=== PATIENT | female | born 1965 | race African-American/Black ===

== ENCOUNTER 2017-06-04 09:06 | Inpatient (IN) | payer OTHER ==
[2017-06-04 11:08] VITALS: BMI 31.9
--- NOTE | 2017-06-04 15:14 | HP ---
CIWA Score - CIWA Score Nausea/Vomitin-Int. Nausea w/Dry Heave Muscle Tremors: 4-Moderate,w/Arms Extend Anxiety: 4-Mod. Anxious/Guarded Agitation: 3 Paroxysmal Sweats: 1-Minimal Palms Moist Orientation: 0-Oriented Tacttile Disturbances: 3-Moderate Itch/Numb/Burn Auditory Disturbances: 0-None Visual Disturbances: 0-None Headache: 2-Mild CIWA-Ar Total Score: 21 Admission ROS BHS - HPI Chief Complaint: WITHDRAWAL SX FROM ALCOHOL Allergies/Adverse Reactions: Allergies Allergy/AdvReac Type Severity Reaction Status Date / Time blueberry Allergy Severe Hives Verified 07/06/15 13:36 No Known Drug Allergies Allergy Severe Hives Verified 08/25/15 12:10 History of Present Illness: 51 Y/O AA/FEMALE WITH A HX OF ALCOHOL AND COCAINE DEPENDENCE SEEKING DETOX [place]. Exam Limitations: No Limitations - Ebola screening Have you traveled outside of the country in the last 21 days: No Have you had contact with anyone from an Ebola affected area: No Have you been sick,other than usual withdrawal symptoms: No - Review of Systems Constitutional: Chills, Loss of Appetite, Night Sweats, Changes in sleep, Unintentional Wgt. Loss EENT: reports: Blurred Vision (WEARS GLASSES), Tearing, Nose Congestion, Dental Problems (FULL UPPER DENTURES AND PARTIAL LOWER DENTURES) Respiratory: reports: Shortness of Breath (HX ASTHMA), Wheezing Cardiac: reports: Lightheadedness GI: reports: Constipated, Diarrhea, Nausea, Poor Appetite, Poor Fluid Intake : reports: Frequency Musculoskeletal: reports: Back Pain, Joint Pain, Muscle Pain, Other (HX PERIPHERAL NEUROPTHY) Integumentary: reports: Dryness (FEET) Neuro: reports: Headache, Numbness, Tingling, Tremors, Unsteady Gait, Dizziness Endocrine: reports: No Symptoms Reported Hematology: reports: Anemia Psychiatric: reports: Orientated x3, Anxious, Depressed Other Systems: Reviewed and Negative Patient History - Patient Medical History Hx Anemia: Yes (NO CURRENT MED) Hx Asthma: Yes (MDI) Hx Chronic Obstructive Pulmonary Disease (COPD): No Hx Cancer: No Hx Cardiac Disorders: No Hx Congestive Heart Failure: No Hx Hypertension: Yes (ON MED) Hx Hypercholesterolemia: Yes (ON MED) Hx Pacemaker: No HX Cerebrovascular Accident: No Hx Seizures: No Hx Dementia: No Hx Diabetes: Yes (ON METFORMIN) Hx Gastrointestinal Disorders: No Hx Liver Disease: No Hx Genitourinary Disorders: No Hx Sexually Transmitted Disorders: Yes ([place]ph[place] 1:2) Hx Renal Disease (ESRD): No Hx Thyroid Disease: No Hx Human Immunodeficiency Virus (HIV): No (NEGATIVE HX) Hx Hepatitis C: No Hx Depression: Yes (ON MED) Hx Suicide Attempt: No (DENIES) Hx Bipolar Disorder: No Hx Schizophrenia: No - Patient Surgical History Past Surgical History: Yes Hx Neurologic Surgery: No Hx Cataract Extraction: No Hx Cardiac Surgery: No Hx Lung Surgery: No Hx Breast Surgery: No Hx Breast Biopsy: No Hx Abdominal Surgery: Yes (abdominal hernia 1982) Hx Appendectomy: No Hx Cholecystectomy: No Hx Genitourinary Surgery: No Hx Section: Yes (two last 21 years ago) Hx Orthopedic Surgery: No Other Surgical History: hemorroiectomy 1982 Anesthesia Reaction: No - PPD History Previous Implant?: Yes Documented Results: Negative w/o proof Implanted On Prior [facility] Admission?: Yes Date: 03/03/16 Results: 0mm PPD to be Administered?: Yes - Reproductive History Patient is a Female of Child Bearing Age (11 -55 yrs old): Yes Last Menstrual Period: 10/08/13 Patient : No - Smoking Cessation Smoking history: Current every day smoker Have you smoked in the past 12 months: Yes Aproximately how many cigarettes per day: 2 Cigars Per Day: 0 Hx Chewing Tobacco Use: No Initiated information on smoking cessation: Yes 'Breaking Loose' booklet given: 06/04/17 - Substance & Tx. History Hx Alcohol Use: Yes (VODKA/BEER) Hx Substance Use: Yes (CRACK/COCAINE) Substance Use Type: Alcohol, Cocaine Hx Substance Use Treatment: Yes (LAST TX AT [facility]) - Substances Abused Alcohol Route: Oral Frequency: Daily Amount used: 2-3 pints of Vodka and two 6 packs of beer Age of first use: 8 Date of Last Use: 06/03/17 Cocaine Route: Smoking Frequency: 1-2 times per week Amount used: $ 200 Age of first use: 17 Date of Last Use: 06/02/17 Family Disease History - Family Disease History Family Disease History: Diabetes: Grandparent (breast CA,diabetes mellitus), Mother, CA: Grandparent, Mother, Other: Father (alcohol,) Admission Physical Exam BHS - Vital Signs Vital Signs: Vital Signs - 24 hr 06/04/17 11:05 Temperature 96.4 F L Pulse Rate 72 Respiratory 20 Rate Blood Pressure 162/103 - Physical General Appearance: Yes: Moderate Distress, Irritable, Anxious HEENTM: Yes: EOMI, Normocephalic, SAM, Pharynx Normal Respiratory: Yes: Chest Non-Tender, Lungs Clear, Normal Breath Sounds, No Respiratory Distress Neck: Yes: No masses,lesions,Nodules, Supple, Trachea in good position Breast: Yes: Breast Exam Deferred Cardiology: Yes: Regular Rhythm, Regular Rate, S1, S2 Abdominal: Yes: Normal Bowel Sounds, Non Tender, Flat Genitourinary: Yes: Other Back: Yes: Within Normal Limits Musculoskeletal: Yes: full range of Motion, Gait Steady Extremities: Yes: Normal Capillary Refill, Normal Range of Motion, Non-Tender Neurological: Yes: investment banking manager II-XII NML intact, Fully Oriented, Alert, Motor Strength 5/5 Integumentary: Yes: Dry, Warm Lymphatic: Yes: Within Normal Limits - Diagnostic (1) Alcohol dependence with uncomplicated withdrawal Current Visit: Yes Status: Acute (2) Asthma Current Visit: Yes Status: Chronic Qualifiers: Asthma severity: mild Asthma persistence: unspecified Asthma complication type: uncomplicated Qualified Code(s): J45.909 - Unspecified asthma, uncomplicated (3) Cocaine dependence Current Visit: Yes Status: Acute Qualifiers: Substance use status: uncomplicated Qualified Code(s): F14.20 - Cocaine dependence, uncomplicated (4) GERD (gastroesophageal reflux disease) Current Visit: Yes Status: Chronic Qualifiers: Esophagitis presence: esophagitis presence not specified Qualified Code(s) : K21.9 - Gastro-esophageal reflux disease without esophagitis (5) H/O cardiac murmur Current Visit: Yes Status: Suspected Comment: NO MURMUR ON AUSCULTATION (6) Hypercholesteremia Current Visit: Yes Status: Chronic (7) Hypertension Current Visit: Yes Status: Chronic Qualifiers: Hypertension type: essential hypertension Qualified Code(s): I10 - Essential (primary) hypertension (8) Morbid obesity Current Visit: Yes Status: Chronic (9) Nicotine dependence Current Visit: Yes Status: Acute Qualifiers: Nicotine product type: cigarettes Substance use status: in withdrawal Qualified Code(s): F17.213 - Nicotine dependence, cigarettes, with withdrawal (10) Non-insulin dependent type 2 diabetes mellitus Current Visit: Yes Status: Chronic Cleared for Admission [facility] - Detox or Rehab [facility] Level of Care: Medically Managed Detox Regimen/Protocol: Valium S Breath Alcohol Content Breath Alcohol Content: 0 Urine Pregancy Test - Result Urine Test Results: Negative- NO Line Present Urine Drug Screen - Results Drug Screen Negative: No Urine Drug Screen Results: SARAY-Cocaine
[2017-06-04] MEDS ORDERED: MAGNESIUM HYDROX 2400MG/30ML ORAL SUSPENSION 30 ML CUP PO PRN (15:21)
[2017-06-04] MEDS ORDERED: P-EPHED 60MG/TRIPROLIDI 2.5MG TABLET PO PRN (15:21)
[2017-06-04] MEDS ORDERED: ACETAMINOPHEN 325 MG TABLET (FP) PO PRN (15:21)
[2017-06-04] MEDS ORDERED: MAG HYDROX/AL HYDROX/SIMETH 30 ML UNIT-DOSE CUP PO PRN (15:21)
[2017-06-04] MEDS ORDERED: NICOTINE POLACRILEX 2 MG GUM BC PRN (15:21)
[2017-06-04] MEDS ORDERED: IBUPROFEN 400 MG TABLET (FP) PO PRN (15:21)
[2017-06-04] MEDS ORDERED: diazePAM 5 MG TABLET PO PRN (15:21)
[2017-06-04] MEDS ORDERED: LOPERAMIDE HCL 2 MG CAPSULE PO PRN (15:21)
[2017-06-04] MEDS ORDERED: MENTHOL/PHENOL 1 EACH UD MM PRN (15:21)
[2017-06-04] MEDS ORDERED: hydrOXYzine PAMOATE 50 MG CAPSULE (FP) PO PRN (15:21)
[2017-06-04] MEDS ORDERED: MAGNESIUM CITRATE 300 ML BOTTLE PO PRN (15:21)
[2017-06-04] MEDS ORDERED: ALBUTEROL SO4 18 GM HFA INHALER IH PRN (15:24)
[2017-06-04] MEDS ORDERED: diazePAM 5 MG TABLET PO ONE (15:47)
[2017-06-04] MEDS: ASPIRIN 81 MG CHEWABLE TABLETS PO SCH (16:59)
[2017-06-04] MEDS: LOSARTAN POTASSIUM 25 MG TABLET PO SCH (16:59)
[2017-06-04] MEDS: NICOTINE 14 MG/24 HOURS TOPICAL PATCH TD SCH (16:59)
[2017-06-04 17:19] LABS: HEMATOCRIT 39.5 % (32.4-45.2); MCH 29.2 pg (25.7-33.7); MCHC 32.9 g/dl (32.0-36.0); MEAN CELL VOLUME 88.7 fl (80-96); MEAN PLT VOLUME 8.5 fl (7.5-11.1); PLATELET COUNT 298 K/MM3 (134-434); RBC 4.45 M/mm3 (3.60-5.2); WHITE BLOOD COUNT 5.2 K/mm3 (4.0-10.0)
[2017-06-04 17:57] LABS: ALBUMIN 3.1 g/dl (3.4-5.0); ANION GAP 9 (8-16); BLOOD UREA NITROGEN 10 mg/dL (7-18); CALCIUM 9.1 mg/dL (8.5-10.1); CHLORIDE 106 mmol/L (98-107); CO2 28 mmol/L (21-32); GLUCOSE,RANDOM 68 mg/dL (74-106); POTASSIUM 4.3 mmol/L (3.5-5.1); SGPT/ALT 20 U/L (12-78); SODIUM 143 mmol/L (136-145)
[2017-06-04 18:00] LABS: ALK PHOS 102 U/L (45-117); BILIRUBIN,TOTAL 0.3 mg/dL (0.2-1.0); CREATININE 0.8 mg/dL (0.55-1.02); SGOT/AST 8 U/L (15-37)
[2017-06-04] MEDS: guaiFENesin/D-METHORPHAN HB 10 ML UNIT-DOSE CUPS PO PRN (18:45)
[2017-06-04 21:28] LABS: URINE APPEARANCE SLCLOUDY; URINE BILIRUBIN NEGATIVE (NEGATIVE); URINE BLOOD NEGATIVE (NEGATIVE); URINE COLOR LTYELLOW; URINE GLUCOSE (UA) NEGATIVE (NEGATIVE); URINE KETONE NEGATIVE (NEGATIVE); URINE LEUK ESTERASE NEGATIVE (NEGATIVE); URINE NITRITE NEGATIVE (NEGATIVE); URINE PROTEIN NEGATIVE (NEGATIVE); URINE UROBILINOGEN NEGATIVE mg/dL (0.2-1.0)
[2017-06-04] MEDS: BUDESONIDE/FORMETEROL FUMARATE 160/4.5 mcg INHALER IH SCH (22:36)
[2017-06-04] MEDS: ATORVASTATIN CA 10 MG TABLET (FP) PO SCH (22:37)
[2017-06-04] MEDS: diazePAM 5 MG TABLET PO SCH (22:37)
[2017-06-04] MEDS: GABAPENTIN 100 MG CAPSULE (FP) PO SCH (22:37)
[2017-06-04] MEDS: THIAMINE HCL 100 MG TABLET (FP) PO SCH (22:37)
[2017-06-04] MEDS: MONTELUKAST NA 10 MG TABLET PO SCH (22:37)
[2017-06-04] MEDS ORDERED: cloNIDine HCL 0.1 MG TABLET PO ONE (23:28)
[2017-06-05] MEDS: GABAPENTIN 100 MG CAPSULE (FP) PO SCH ×3 (06:01→22:37)
[2017-06-05] MEDS: diazePAM 5 MG TABLET PO SCH ×3 (06:02→22:38)
[2017-06-05] MEDS: metFORMIN HCL 500 MG TABLET (FP) PO SCH (06:08)
--- NOTE | 2017-06-05 09:05 | CONSULT ---
[facility] Psychiatric Consult - Data Date of interview: 06/05/17 Admission source: [facility] Identifying data: This is 51 years old obese female with no psychiatric hospitalization history, HISOTY OF ptsd, mdd, intoxicated with Opioids, PCP, Alcohol, Cocaine amd Nicotine Substance Abuse History: - Smoking Cessation. Smoking history: Current every day smoker. Have you smoked in the past 12 months: Yes. Aproximately how many cigarettes per day: 2. Cigars Per Day: 0. Hx Chewing Tobacco Use: No. Initiated information on smoking cessation: Yes. 'Breaking Loose' booklet given : 06/04/17. - Substance & Tx. History. Hx Alcohol Use: Yes (VODKA/BEER). Hx Substance Use: Yes (CRACK/COCAINE). Substance Use Type: Alcohol, Cocaine. Hx Substance Use Treatment: Yes (LAST TX AT [facility] - Substances Abused. Alcohol. Route: Oral. Frequency: Daily. Amount used: 2-3 pints of Vodka and two 6 packs of beer. Age of first use: 8. Date of Last Use: 06/03/17. Cocaine. Route: Smoking. Frequency: 1-2 times per week. Amount used: $ 200. Age of first use: 17. Date of Last Use: 06/02/17 Medical History: Asthma, PTSD, MDD,Hypersholesterolemia, Cardiac murmur history , HTN, DM-2, Psychiatric History: Patient reports anxiety and depression, PTSD, MDD, DENIES SUICIDAL HISTORY, reports taking prior to admission: Trazodone 150mg po qhs. Buspar 15mg po bid. Celexa 40mg poqd Physical/Sexual Abuse/Trauma History: Denies Additional Comment: Trazodone 150mg po qhs. Buspar 15mg po bid. Celexa 40mg poqd Mental Status Exam - Mental Status Exam Alert and Oriented to: Person Cognitive Function: Fair Patient Appearance: Unkempt Mood: Sad Affect: Flat Patient Behavior: Sedated Speech Pattern: Delayed Voice Loudness: Mildly Soft/Quiet Thought Process: Circumstantial Thought Disorder: Being Controlled Hallucinations: Denies Suicidal Ideation: Denies Homicidal Ideation: Denies Insight/Judgement: Fair Sleep: Difficulty falling asleep Appetite: Weight gain Muscle strength/Tone: Normal Gait/Station: Shuffling Additional Comments: Trazodone 150mg po qhs. Buspar 15mg po bid. Celexa 40mg poqd Psychiatric Findings - Problem List ([place] 1, 2,3) (1) Alcohol dependence with uncomplicated withdrawal Current Visit: Yes Status: Acute (2) Cocaine dependence Current Visit: Yes Status: Acute Qualifiers: Substance use status: uncomplicated Qualified Code(s): F14.20 - Cocaine dependence, uncomplicated (3) Nicotine dependence Current Visit: Yes Status: Acute Qualifiers: Nicotine product type: cigarettes Substance use status: in withdrawal Qualified Code(s): F17.213 - Nicotine dependence, cigarettes, with withdrawal (4) Morbid obesity Current Visit: Yes Status: Chronic - Initial Treatment Plan Initial Treatment Plan: Trazodone 150mg po qhs. Buspar 15mg po bid. Celexa 40mg poqd
--- NOTE | 2017-06-05 10:35 | EKG ---
Test Reason : Blood Pressure : / mmHG Vent. Rate : 070 BPM Atrial Rate : 070 BPM P-R Int : 176 ms QRS Dur : 096 ms QT Int : 390 ms P-R-T Axes : -13 033 004 degrees QTc Int : 421 ms NORMAL SINUS RHYTHM NORMAL ECG NO PREVIOUS ECGS AVAILABLE Confirmed by ADEEL CANALES MD ([id number]) on 06/05/2017 10:34:49 AM Referred By: Confirmed By:ADEEL CANALES MD
[2017-06-05] MEDS: CITALOPRAM HYDROBROMIDE 20 MG TABLET (FP) PO SCH (11:09)
[2017-06-05] MEDS: ASPIRIN 81 MG CHEWABLE TABLETS PO SCH (11:09)
[2017-06-05] MEDS: PRENATAL VITAMINS W/ FOLIC ACID TABLET (FP) PO SCH (11:10)
[2017-06-05] MEDS: LOSARTAN POTASSIUM 25 MG TABLET PO SCH (11:10)
[2017-06-05] MEDS: BUDESONIDE/FORMETEROL FUMARATE 160/4.5 mcg INHALER IH SCH ×2 (11:10→22:38)
[2017-06-05] MEDS: NICOTINE 14 MG/24 HOURS TOPICAL PATCH TD SCH (11:14)
--- NOTE | 2017-06-05 11:59 | PN ---
S CIWA - CIWA Score Nausea/Vomitin-No Nausea/No Vomiting Muscle Tremors: 4-Moderate,w/Arms Extend Anxiety: 3 Agitation: 3 Paroxysmal Sweats: 4-Forehead w/Sweat Beads Orientation: 0-Oriented Tacttile Disturbances: 1-Very Mild Itch/Numbness Auditory Disturbances: 0-None Visual Disturbances: 0-None Headache: 1-Very Mild CIWA-Ar Total Score: 16 BHS Progress Note (SOAP) Subjective: tremor sweat anxiety Objective: 06/05/17 11:59 Vital Signs Temperature 96.8 F L 06/05/17 09:52 Pulse Rate 63 06/05/17 09:52 Respiratory Rate 18 06/05/17 09:52 Blood Pressure 152/92 06/05/17 09:52 O2 Sat by Pulse Oximetry (%) Laboratory Last Values WBC 5.2 K/mm3 (4.0-10.0) D 06/04/17 15:00 RBC 4.45 M/mm3 (3.60-5.2) 06/04/17 15:00 Hgb 13.0 GM/dL (10.7-15.3) 06/04/17 15:00 Hct 39.5 % (32.4-45.2) 06/04/17 15:00 MCV 88.7 fl (80-96) 06/04/17 15:00 MCH 29.2 pg (25.7-33.7) 06/04/17 15:00 MCHC 32.9 g/dl (32.0-36.0) 06/04/17 15:00 RDW 14.0 % (11.6-15.6) 06/04/17 15:00 Plt Count 298 K/MM3 (134-434) 06/04/17 15:00 MPV 8.5 fl (7.5-11.1) 06/04/17 15:00 Sodium 143 mmol/L (136-145) 06/04/17 15:00 Potassium 4.3 mmol/L (3.5-5.1) 06/04/17 15:00 Chloride 106 mmol/L (98-107) 06/04/17 15:00 Carbon Dioxide 28 mmol/L (21-32) 06/04/17 15:00 Anion Gap 9 (8-16) 06/04/17 15:00 BUN 10 mg/dL (7-18) 06/04/17 15:00 Creatinine 0.8 mg/dL (0.55-1.02) 06/04/17 15:00 Creat Clearance w eGFR > 60 (>60) 06/04/17 15:00 POC Glucometer 96 UNITS (80-120) 06/05/17 06:07 Random Glucose 68 mg/dL (74-106) L 06/04/17 15:00 Calcium 9.1 mg/dL (8.5-10.1) 06/04/17 15:00 Total Bilirubin 0.3 mg/dL (0.2-1.0) 06/04/17 15:00 AST 8 U/L (15-37) L 06/04/17 15:00 ALT 20 U/L (12-78) 06/04/17 15:00 Alkaline Phosphatase 102 U/L (45-117) 06/04/17 15:00 Total Protein 7.0 g/dl (6.4-8.2) 06/04/17 15:00 Albumin 3.1 g/dl (3.4-5.0) L 06/04/17 15:00 Urine Color Ltyellow 06/04/17 20:00 Urine Appearance Slcloudy 06/04/17 20:00 Urine pH 5.0 (5.0-8.0) 06/04/17 20:00 Ur Specific [place] 1.017 (1.001-1.035) 06/04/17 20:00 Urine Protein Negative (NEGATIVE) 06/04/17 20:00 Urine Glucose (UA) Negative (NEGATIVE) 06/04/17 20:00 Urine Ketones Negative (NEGATIVE) 06/04/17 20:00 Urine Blood Negative (NEGATIVE) 06/04/17 20:00 Urine Nitrite Negative (NEGATIVE) 06/04/17 20:00 Urine Bilirubin Negative (NEGATIVE) 06/04/17 20:00 Urine Urobilinogen Negative mg/dL (0.2-1.0) 06/04/17 20:00 Ur Leukocyte Esterase Negative (NEGATIVE) 06/04/17 20:00 RPR Titer Nonreactive (NONREACTIVE) 06/04/17 15:00 HIV 1&2 Antibody Screen Negative 06/05/17 06:00 HIV P24 Antigen Negative 06/05/17 06:00 lab noted Assessment: 06/05/17 12:00 withdrawal sx Plan: continue detox
[2017-06-05] MEDS: ATORVASTATIN CA 10 MG TABLET (FP) PO SCH (22:37)
[2017-06-05] MEDS: THIAMINE HCL 100 MG TABLET (FP) PO SCH (22:37)
[2017-06-05] MEDS: traZODone HCL 50 MG TABLET (FP) PO SCH (22:37)
[2017-06-05] MEDS: MONTELUKAST NA 10 MG TABLET PO SCH (22:37)
[2017-06-06] MEDS: GABAPENTIN 100 MG CAPSULE (FP) PO SCH ×3 (05:31→22:45)
[2017-06-06] MEDS: metFORMIN HCL 500 MG TABLET (FP) PO SCH (06:50)
--- NOTE | 2017-06-06 10:19 | PN ---
[facility] CIWA - CIWA Score Nausea/Vomitin-No Nausea/No Vomiting Muscle Tremors: 3 Anxiety: 4-Mod. Anxious/Guarded Agitation: 3 Paroxysmal Sweats: 3 Orientation: 0-Oriented Tacttile Disturbances: 0-None Auditory Disturbances: 0-None Visual Disturbances: 0-None Headache: 0-None Present CIWA-Ar Total Score: 13 S Progress Note (SOAP) Subjective: Sweating,tremors,interrupted sleep,restless Objective: 06/06/17 10:19 Vital Signs - 8 hr 06/06/17 06/06/17 06/06/17 03:30 07:43 09:46 Temperature 98 F 97.7 F Pulse Rate 55 L 81 Respiratory 18 16 20 Rate Blood Pressure 130/72 142/80 Laboratory Last Values WBC 5.2 K/mm3 (4.0-10.0) D 06/04/17 15:00 RBC 4.45 M/mm3 (3.60-5.2) 06/04/17 15:00 Hgb 13.0 GM/dL (10.7-15.3) 06/04/17 15:00 Hct 39.5 % (32.4-45.2) 06/04/17 15:00 MCV 88.7 fl (80-96) 06/04/17 15:00 MCH 29.2 pg (25.7-33.7) 06/04/17 15:00 MCHC 32.9 g/dl (32.0-36.0) 06/04/17 15:00 RDW 14.0 % (11.6-15.6) 06/04/17 15:00 Plt Count 298 K/MM3 (134-434) 06/04/17 15:00 MPV 8.5 fl (7.5-11.1) 06/04/17 15:00 Sodium 143 mmol/L (136-145) 06/04/17 15:00 Potassium 4.3 mmol/L (3.5-5.1) 06/04/17 15:00 Chloride 106 mmol/L (98-107) 06/04/17 15:00 Carbon Dioxide 28 mmol/L (21-32) 06/04/17 15:00 Anion Gap 9 (8-16) 06/04/17 15:00 BUN 10 mg/dL (7-18) 06/04/17 15:00 Creatinine 0.8 mg/dL (0.55-1.02) 06/04/17 15:00 Creat Clearance w eGFR > 60 (>60) 06/04/17 15:00 POC Glucometer 101 UNITS (80-120) 06/06/17 05:33 Random Glucose 68 mg/dL (74-106) L 06/04/17 15:00 Calcium 9.1 mg/dL (8.5-10.1) 06/04/17 15:00 Total Bilirubin 0.3 mg/dL (0.2-1.0) 06/04/17 15:00 AST 8 U/L (15-37) L 06/04/17 15:00 ALT 20 U/L (12-78) 06/04/17 15:00 Alkaline Phosphatase 102 U/L (45-117) 06/04/17 15:00 Total Protein 7.0 g/dl (6.4-8.2) 06/04/17 15:00 Albumin 3.1 g/dl (3.4-5.0) L 06/04/17 15:00 Urine Color Ltyellow 06/04/17 20:00 Urine Appearance Slcloudy 06/04/17 20:00 Urine pH 5.0 (5.0-8.0) 06/04/17 20:00 Ur Specific [place] 1.017 (1.001-1.035) 06/04/17 20:00 Urine Protein Negative (NEGATIVE) 06/04/17 20:00 Urine Glucose (UA) Negative (NEGATIVE) 06/04/17 20:00 Urine Ketones Negative (NEGATIVE) 06/04/17 20:00 Urine Blood Negative (NEGATIVE) 06/04/17 20:00 Urine Nitrite Negative (NEGATIVE) 06/04/17 20:00 Urine Bilirubin Negative (NEGATIVE) 06/04/17 20:00 Urine Urobilinogen Negative mg/dL (0.2-1.0) 06/04/17 20:00 Ur Leukocyte Esterase Negative (NEGATIVE) 06/04/17 20:00 RPR Titer Nonreactive (NONREACTIVE) 06/04/17 15:00 Hepatitis C Antibody 0.1 s/co ratio (0.0-0.9) 06/04/17 15:00 HIV 1&2 Antibody Screen Negative 06/05/17 06:00 HIV P24 Antigen Negative 06/05/17 06:00 labs noted Assessment: 06/06/17 10:20 Withdrawal sx. Plan: Continue Detox
[2017-06-06] MEDS: CITALOPRAM HYDROBROMIDE 20 MG TABLET (FP) PO SCH (10:58)
[2017-06-06] MEDS: ASPIRIN 81 MG CHEWABLE TABLETS PO SCH (10:58)
[2017-06-06] MEDS: LOSARTAN POTASSIUM 25 MG TABLET PO SCH (10:58)
[2017-06-06] MEDS: diazePAM 5 MG TABLET PO SCH ×2 (10:58→22:46)
[2017-06-06] MEDS: NICOTINE 14 MG/24 HOURS TOPICAL PATCH TD SCH (10:59)
[2017-06-06] MEDS: BUDESONIDE/FORMETEROL FUMARATE 160/4.5 mcg INHALER IH SCH ×2 (10:59→22:46)
[2017-06-06] MEDS: PRENATAL VITAMINS W/ FOLIC ACID TABLET (FP) PO SCH (10:59)
[2017-06-06] MEDS: THIAMINE HCL 100 MG TABLET (FP) PO SCH (22:45)
[2017-06-06] MEDS: MONTELUKAST NA 10 MG TABLET PO SCH (22:46)
[2017-06-06] MEDS: ATORVASTATIN CA 10 MG TABLET (FP) PO SCH (22:46)
[2017-06-06] MEDS: traZODone HCL 50 MG TABLET (FP) PO SCH (22:46)
[2017-06-07] MEDS: GABAPENTIN 100 MG CAPSULE (FP) PO SCH ×3 (06:11→22:22)
[2017-06-07] MEDS: metFORMIN HCL 500 MG TABLET (FP) PO SCH (06:11)
[2017-06-07] MEDS: guaiFENesin/D-METHORPHAN HB 10 ML UNIT-DOSE CUPS PO PRN (07:58)
--- NOTE | 2017-06-07 09:29 | PN ---
BHS Progress Note (SOAP) Subjective: Sweating,interrupted sleep,restless Objective: 06/07/17 09:28 Vital Signs - 8 hr 06/07/17 06/07/17 03:30 06:00 Temperature 97.7 F Pulse Rate 65 Respiratory 18 18 Rate Blood Pressure 122/85 Laboratory Tests 06/04/17 06/04/17 06/04/17 12:07 15:00 15:00 WBC 5.2 D RBC 4.45 Hgb 13.0 Hct 39.5 MCV 88.7 MCH 29.2 MCHC 32.9 RDW 14.0 Plt Count 298 MPV 8.5 Sodium Potassium Chloride Carbon Dioxide Anion Gap BUN Creatinine Creat Clearance w eGFR POC Glucometer 113 Random Glucose Calcium Total Bilirubin AST ALT Alkaline Phosphatase Total Protein Albumin Urine Color Urine Appearance Urine pH Ur Specific [place] Urine Protein Urine Glucose (UA) Urine Ketones Urine Blood Urine Nitrite Urine Bilirubin Urine Urobilinogen Ur Leukocyte Esterase RPR Titer Hepatitis C Antibody 0.1 HIV 1&2 Antibody Screen HIV P24 Antigen 06/04/17 06/04/17 06/04/17 15:00 15:00 20:00 WBC RBC Hgb Hct MCV MCH MCHC RDW Plt Count MPV Sodium 143 Potassium 4.3 Chloride 106 Carbon Dioxide 28 Anion Gap 9 BUN 10 Creatinine 0.8 Creat Clearance w eGFR > 60 POC Glucometer Random Glucose 68 L Calcium 9.1 Total Bilirubin 0.3 AST 8 L ALT 20 Alkaline Phosphatase 102 Total Protein 7.0 Albumin 3.1 L Urine Color Ltyellow Urine Appearance Slcloudy Urine pH 5.0 Ur Specific [place] 1.017 Urine Protein Negative Urine Glucose (UA) Negative Urine Ketones Negative Urine Blood Negative Urine Nitrite Negative Urine Bilirubin Negative Urine Urobilinogen Negative Ur Leukocyte Esterase Negative RPR Titer Nonreactive Hepatitis C Antibody HIV 1&2 Antibody Screen HIV P24 Antigen 06/05/17 06/05/17 06/05/17 06:00 06:07 16:48 WBC RBC Hgb Hct MCV MCH MCHC RDW Plt Count MPV Sodium Potassium Chloride Carbon Dioxide Anion Gap BUN Creatinine Creat Clearance w eGFR POC Glucometer 96 104 Random Glucose Calcium Total Bilirubin AST ALT Alkaline Phosphatase Total Protein Albumin Urine Color Urine Appearance Urine pH Ur Specific [place] Urine Protein Urine Glucose (UA) Urine Ketones Urine Blood Urine Nitrite Urine Bilirubin Urine Urobilinogen Ur Leukocyte Esterase RPR Titer Hepatitis C Antibody HIV 1&2 Antibody Screen Negative HIV P24 Antigen Negative 06/06/17 06/06/17 06/07/17 05:33 17:00 06:10 WBC RBC Hgb Hct MCV MCH MCHC RDW Plt Count MPV Sodium Potassium Chloride Carbon Dioxide Anion Gap BUN Creatinine Creat Clearance w eGFR POC Glucometer 101 95 101 Random Glucose Calcium Total Bilirubin AST ALT Alkaline Phosphatase Total Protein Albumin Urine Color Urine Appearance Urine pH Ur Specific [place] Urine Protein Urine Glucose (UA) Urine Ketones Urine Blood Urine Nitrite Urine Bilirubin Urine Urobilinogen Ur Leukocyte Esterase RPR Titer Hepatitis C Antibody HIV 1&2 Antibody Screen HIV P24 Antigen labs noted Assessment: 06/07/17 09:29 Withdrawal sx. Plan: Continue detox
[2017-06-07] MEDS: CITALOPRAM HYDROBROMIDE 20 MG TABLET (FP) PO SCH (10:43)
[2017-06-07] MEDS: PRENATAL VITAMINS W/ FOLIC ACID TABLET (FP) PO SCH (10:43)
[2017-06-07] MEDS: NICOTINE 14 MG/24 HOURS TOPICAL PATCH TD SCH (10:44)
[2017-06-07] MEDS: BUDESONIDE/FORMETEROL FUMARATE 160/4.5 mcg INHALER IH SCH ×2 (10:44→22:21)
[2017-06-07] MEDS: diazePAM 5 MG TABLET PO SCH ×2 (10:44→22:22)
[2017-06-07] MEDS: ASPIRIN 81 MG CHEWABLE TABLETS PO SCH (10:44)
[2017-06-07] MEDS: LOSARTAN POTASSIUM 25 MG TABLET PO SCH (10:45)
[2017-06-07] MEDS: THIAMINE HCL 100 MG TABLET (FP) PO SCH (22:21)
[2017-06-07] MEDS: traZODone HCL 50 MG TABLET (FP) PO SCH (22:22)
[2017-06-07] MEDS: ATORVASTATIN CA 10 MG TABLET (FP) PO SCH (22:22)
[2017-06-07] MEDS: MONTELUKAST NA 10 MG TABLET PO SCH (22:22)
[2017-06-08] MEDS: GABAPENTIN 100 MG CAPSULE (FP) PO SCH (05:35)
[2017-06-08] MEDS: metFORMIN HCL 500 MG TABLET (FP) PO SCH (07:06)
[2017-06-08] MEDS: PRENATAL VITAMINS W/ FOLIC ACID TABLET (FP) PO SCH (09:34)
[2017-06-08] MEDS: CITALOPRAM HYDROBROMIDE 20 MG TABLET (FP) PO SCH (09:34)
[2017-06-08] MEDS: ASPIRIN 81 MG CHEWABLE TABLETS PO SCH (09:34)
[2017-06-08] MEDS: LOSARTAN POTASSIUM 25 MG TABLET PO SCH (09:34)
[2017-06-08] MEDS ORDERED: diazePAM 5 MG TABLET PO SCH (10:00)
[2017-06-08 10:50] VITALS: BP 137/78; PULSE 78; TEMP 97.7
--- NOTE | 2017-06-08 11:11 | DS ---
[facility] Detox Discharge Summary Admission Date: 06/04/17 Discharge Date: 06/08/17 - History Present History: Alcohol Dependence - Physical Exam Results Vital Signs: Vital Signs Temperature 97.7 F 06/08/17 10:00 Pulse Rate 78 06/08/17 10:00 Respiratory Rate 20 06/08/17 10:00 Blood Pressure 137/78 06/08/17 10:00 O2 Sat by Pulse Oximetry (%) Pertinent Admission Physical Exam Findings: withdrawal sx Vital Signs Temperature 97.7 F 06/08/17 10:00 Pulse Rate 78 06/08/17 10:00 Respiratory Rate 20 06/08/17 10:00 Blood Pressure 137/78 06/08/17 10:00 O2 Sat by Pulse Oximetry (%) Laboratory Last Values WBC 5.2 K/mm3 (4.0-10.0) D 06/04/17 15:00 RBC 4.45 M/mm3 (3.60-5.2) 06/04/17 15:00 Hgb 13.0 GM/dL (10.7-15.3) 06/04/17 15:00 Hct 39.5 % (32.4-45.2) 06/04/17 15:00 MCV 88.7 fl (80-96) 06/04/17 15:00 MCH 29.2 pg (25.7-33.7) 06/04/17 15:00 MCHC 32.9 g/dl (32.0-36.0) 06/04/17 15:00 RDW 14.0 % (11.6-15.6) 06/04/17 15:00 Plt Count 298 K/MM3 (134-434) 06/04/17 15:00 MPV 8.5 fl (7.5-11.1) 06/04/17 15:00 Sodium 143 mmol/L (136-145) 06/04/17 15:00 Potassium 4.3 mmol/L (3.5-5.1) 06/04/17 15:00 Chloride 106 mmol/L (98-107) 06/04/17 15:00 Carbon Dioxide 28 mmol/L (21-32) 06/04/17 15:00 Anion Gap 9 (8-16) 06/04/17 15:00 BUN 10 mg/dL (7-18) 06/04/17 15:00 Creatinine 0.8 mg/dL (0.55-1.02) 06/04/17 15:00 Creat Clearance w eGFR > 60 (>60) 06/04/17 15:00 POC Glucometer 90 UNITS (80-120) 06/08/17 05:34 Random Glucose 68 mg/dL (74-106) L 06/04/17 15:00 Calcium 9.1 mg/dL (8.5-10.1) 06/04/17 15:00 Total Bilirubin 0.3 mg/dL (0.2-1.0) 06/04/17 15:00 AST 8 U/L (15-37) L 06/04/17 15:00 ALT 20 U/L (12-78) 06/04/17 15:00 Alkaline Phosphatase 102 U/L (45-117) 06/04/17 15:00 Total Protein 7.0 g/dl (6.4-8.2) 06/04/17 15:00 Albumin 3.1 g/dl (3.4-5.0) L 06/04/17 15:00 Urine Color Ltyellow 06/04/17 20:00 Urine Appearance Slcloudy 06/04/17 20:00 Urine pH 5.0 (5.0-8.0) 06/04/17 20:00 Ur Specific [place] 1.017 (1.001-1.035) 06/04/17 20:00 Urine Protein Negative (NEGATIVE) 06/04/17 20:00 Urine Glucose (UA) Negative (NEGATIVE) 06/04/17 20:00 Urine Ketones Negative (NEGATIVE) 06/04/17 20:00 Urine Blood Negative (NEGATIVE) 06/04/17 20:00 Urine Nitrite Negative (NEGATIVE) 06/04/17 20:00 Urine Bilirubin Negative (NEGATIVE) 06/04/17 20:00 Urine Urobilinogen Negative mg/dL (0.2-1.0) 06/04/17 20:00 Ur Leukocyte Esterase Negative (NEGATIVE) 06/04/17 20:00 RPR Titer Nonreactive (NONREACTIVE) 06/04/17 15:00 Hepatitis C Antibody 0.1 s/co ratio (0.0-0.9) 06/04/17 15:00 HIV 1&2 Antibody Screen Negative 06/05/17 06:00 HIV P24 Antigen Negative 06/05/17 06:00 lab noted - Treatment Hospital Course: Detox Protocol Followed, Detoxed Safely, Responded well, Discharged Condition Good, Rehab Referral Accepted - Medication Discharge Medications: Ambulatory Orders Albuterol Sulfate Inhaler - [Ventolin HFA Inhaler -] 2 inh PO Q4H PRN #1 inh Aspirin [ASA -] 81 mg PO DAILY #30 tab.chew 03/05/16 Losartan Potassium [Cozaar -] 25 mg PO DAILY #30 tablet 03/05/16 Montelukast Na [Singulair -] 10 mg PO HS #30 tablet 03/05/16 Pravastatin Sodium [Pravachol -] 20 mg PO HS #30 tablet 03/05/16 Budesonide/Formeterol Fumarate [SYMBICORT 160/4.5mcg -] 2 inh PO BID 06/04/17 Gabapentin [Neurontin -] 100 mg PO TID 06/04/17 Ketoconazole 2% Shampoo [Nizoral 2% Shampoo -] 1 applic TP DAILY 06/04/17 Metformin HCl 500 mg PO DAILY 06/04/17 Buspirone HCl [Buspar -] 15 mg PO BID #60 tablet 06/05/17 Citalopram Hydrobromide [Celexa -] 40 mg PO DAILY #30 tablet 06/05/17 Trazodone HCl [Desyrel -] 150 mg PO HS #30 tablet 06/05/17 - Diagnosis (1) Alcohol dependence with uncomplicated withdrawal Current Visit: Yes Status: Acute (2) Nicotine dependence Current Visit: Yes Status: Acute Qualifiers: Nicotine product type: cigarettes Substance use status: in withdrawal Qualified Code(s): F17.213 - Nicotine dependence, cigarettes, with withdrawal (3) Asthma Current Visit: Yes Status: Chronic Qualifiers: Asthma severity: mild Asthma persistence: unspecified Asthma complication type: uncomplicated Qualified Code(s): J45.909 - Unspecified asthma, uncomplicated (4) GERD (gastroesophageal reflux disease) Current Visit: Yes Status: Chronic Qualifiers: Esophagitis presence: without esophagitis Qualified Code(s): K21.9 - Gastro -esophageal reflux disease without esophagitis (5) Hypercholesteremia Current Visit: Yes Status: Chronic (6) Hypertension Current Visit: Yes Status: Chronic Qualifiers: Hypertension type: essential hypertension Qualified Code(s): I10 - Essential (primary) hypertension (7) Non-insulin dependent type 2 diabetes mellitus Current Visit: Yes Status: Chronic - AMA Did Patient Leave Against Medical Advice: No
== END 2017-06-08 09:39 | disposition home or self-care (01) | DRG 774 ==
LOC: YASAS 09:06 → Y6N 15:22
PROVIDERS: ADMIT Internal Medicine; ATTEND Internal Medicine
PROC: HZ2ZZZZ Detoxification Services for Substance Abuse Treatment (ICD-10-PCS; principal; 2017-06-04)
DX: F10.230 Alcohol dependence with withdrawal, uncomplicated (principal); F17.213 Nicotine dependence, cigarettes, with withdrawal; F14.20 Cocaine dependence, uncomplicated; I10 Essential (primary) hypertension; J45.909 Unspecified asthma, uncomplicated; K21.9 Gastro-esophageal reflux disease without esophagitis; E78.00 Pure hypercholesterolemia, unspecified; E11.9 Type 2 diabetes mellitus without complications; E66.01 Morbid (severe) obesity due to excess calories; R01.1 Cardiac murmur, unspecified; Z68.31 Body mass index [BMI] 31.0-31.9, adult; Z79.84 Long term (current) use of oral hypoglycemic drugs; Z87.42 Personal history of other diseases of the female genital tract
CPT/HCPCS: 36415; 80053; 81003; 82962; 85027; 86593; 86803; 87389; 93005; 93010; J0735

== ENCOUNTER 2019-04-30 09:31 | Inpatient (IN) | payer OTHER ==
[2019-04-30 10:21] VITALS: BMI 30.1
--- NOTE | 2019-04-30 11:44 | HP ---
CIWA Score Nausea/Vomitin-Mild Nausea/No Vomiting Muscle Tremors: 3 Anxiety: 3 Agitation: 3 Paroxysmal Sweats: 1-Minimal Palms Moist Orientation: 0-Oriented Tacttile Disturbances: 1-Very Mild Itch/Numbness Auditory Disturbances: 0-None Visual Disturbances: 0-None Headache: 2-Mild CIWA-Ar Total Score: 14 - Admission Criteria OASAS Guidelines: Admission for Medically Managed Detox: Requires at least one of the followin. CIWA greater than 12 2. Seizures within the past 24 hours 3. Delirium tremens within the past 24 hours 4. Hallucinations within the past 24 hours 5. Acute intervention needed for co occurring medical disorder 6. Acute intervention needed for co occurring psychiatric disorder 7. Severe withdrawal that cannot be handled at a lower level of care (continued vomiting, continued diarrhea, abnormal vital signs) requiring intravenous medication and/or fluids 8. 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 Cardiovascular: Yes: HTN Pulmonary: Yes: Asthma Gastrointestinal: Yes: GERD ...LMP: 10/08/13 ...: No ...: 3 ...Para: 3 Psych: Yes: Depression - Past Surgical History Past Surgical History: Yes: (x2 last 1993) - Smoking History Smoking history: Current every day smoker Have you smoked in the past 12 months: Yes Aproximately how many cigarettes per day: 2 - Alcohol/Substance Use Hx Alcohol Use: Yes (VODKA/BEER) History of Substance Use: reports: Cocaine - Social History Usual Living Arrangement: Yes: Other (live with daughter) ADL: Support Services Occupation: unemployed History of Recent Travel: No Other Social History: this 53 years old female with alclcohol and cocaine dependence,unemployes on ssi,living with daughter,ncotine dependence,seeking detox Admission ROS [facility] - HPI Chief Complaint: i need help to stop drinking alcohol and cocaine Allergies/Adverse Reactions: Allergies Allergy/AdvReac Type Severity Reaction Status Date / Time blueberry Allergy Severe Hives Verified 04/30/19 10:12 No Known Drug Allergies Allergy Severe Hives Verified 04/30/19 10:12 History of Present Illness: this 53 years old female with alcohol and cocaine dependence,had previous admission before,withdrawal symptom, denied seizure syncope alcohol related htn,asthma,type 2 dm nicotine dependence,longest period of sobriety 5 years plan for out patient after detox Exam Limitations: No Limitations - Ebola screening Have you traveled outside of the country in the last 21 days: No (N) Have you had contact with anyone from an Ebola affected area: No Do you have a fever: No - Review of Systems Constitutional: Loss of Appetite, Malaise, Night Sweats, Changes in sleep, Weakness EENT: reports: Nose Congestion Respiratory: reports: Other (asthma) Cardiac: reports: No Symptoms Reported GI: reports: Nausea, Poor Appetite, Abdominal cramping : reports: No Symptoms Reported Musculoskeletal: reports: Back Pain, Muscle Pain Neuro: reports: Headache, Tremors Endocrine: reports: No Symptoms Reported Hematology: reports: No Symptoms Reported Psychiatric: reports: No Sypmtoms Reported, Judgement Intact, Mood/Affect Appropiate, Orientated x3, Depressed Patient History - Patient Medical History Hx Anemia: Yes (NO CURRENT MED) Hx Asthma: Yes (MDI) Hx Chronic Obstructive Pulmonary Disease (COPD): No Hx Cancer: No Hx Cardiac Disorders: No Hx Congestive Heart Failure: No Hx Hypertension: Yes (ON MED) Hx Hypercholesterolemia: Yes (ON MED) Hx Pacemaker: No HX Cerebrovascular Accident: No Hx Seizures: No Hx Dementia: No Hx Diabetes: Yes (ON METFORMIN) Hx Gastrointestinal Disorders: No Hx Liver Disease: No Hx Genitourinary Disorders: No Hx Sexually Transmitted Disorders: Yes (Syphillis 1:2) Hx Renal Disease (ESRD): No Hx Thyroid Disease: No Hx Human Immunodeficiency Virus (HIV): No (NEGATIVE HX) Hx Hepatitis C: No Hx Depression: Yes (ON MED) Hx Suicide Attempt: No (DENIES) Hx Bipolar Disorder: No Hx Schizophrenia: No Other Medical History: no suicidal,no homicidal - Patient Surgical History Past Surgical History: Yes Hx Neurologic Surgery: No Hx Cataract Extraction: No Hx Cardiac Surgery: No Hx Lung Surgery: No Hx Breast Surgery: No Hx Breast Biopsy: No Hx Abdominal Surgery: Yes (abdominal hernia 1982) Hx Appendectomy: No Hx Cholecystectomy: No Hx Genitourinary Surgery: No Hx Section: Yes (two last 21 years ago) Hx Orthopedic Surgery: No Other Surgical History: hemorroiectomy 1982 Anesthesia Reaction: No - PPD History Previous Implant?: Yes Documented Results: Negative w/o proof Implanted On Prior [facility] Admission?: Yes Date: 06/06/17 Results: 0mm PPD to be Administered?: Yes - Reproductive History Patient is a Female of Child Bearing Age (11 -55 yrs old): Yes Last Menstrual Period: 10/08/13 Patient : No - Smoking Cessation Smoking history: Current every day smoker Have you smoked in the past 12 months: Yes Aproximately how many cigarettes per day: 2 Cigars Per Day: 0 Hx Chewing Tobacco Use: No Initiated information on smoking cessation: Yes 'Breaking Loose' booklet given: 04/30/19 - Substance & Tx. History Hx Alcohol Use: Yes Hx Substance Use: Yes Substance Use Type: Alcohol, Cocaine Hx Substance Use Treatment: Yes ([facility] 06/04/17 to 06/08/17) - Substances abused Alcohol Substance route: Oral Frequency: Daily Amount used: VODKA- 3PTS / 2 6PKS Age of first use: 8 Date of last use: 04/30/19 Crack Substance route: Smoking Frequency: 1-3 times last 30 days Amount used: $500 Age of first use: 17 Date of last use: 04/29/19 Admission Physical Exam BHS - Vital Signs Vital Signs: Vital Signs - 24 hr 04/30/19 10:10 Temperature 98 F Pulse Rate 73 Respiratory 18 Rate Blood Pressure 161/88 - Physical General Appearance: Yes: Moderate Distress, Tremorous, Irritable, Sweating, Anxious HEENTM: Yes: Normal ENT Inspection, SAM, Pharynx Normal Respiratory: Yes: Lungs Clear, Normal Breath Sounds, No Respiratory Distress, Other (asthma) Neck: Yes: Within Normal Limits, Supple, Trachea in good position Breast: Yes: Breast Exam Deferred Cardiology: Yes: Within Normal Limits, Regular Rhythm, Regular Rate, S1, S2 Abdominal: Yes: Within Normal Limits, Normal Bowel Sounds, Non Tender, Soft, Surgical Scar Genitourinary: Yes: Within Normal Limits Back: Yes: Muscle Spasm Musculoskeletal: Yes: Back pain, Muscle Pain Extremities: Yes: Within Normal Limits, Normal Range of Motion, Tremors Neurological: Yes: reception interviewer II-XII NML intact, Fully Oriented, Alert, Motor Strength 5/5 Integumentary: Yes: Dry Lymphatic: Yes: Within Normal Limits - Diagnostic (1) Alcohol dependence with uncomplicated withdrawal Current Visit: No Status: Acute (2) Cocaine dependence Current Visit: No Status: Acute Qualifiers: Substance use status: uncomplicated Qualified Code(s): F14.20 - Cocaine dependence, uncomplicated (3) Nicotine dependence Current Visit: No Status: Acute Qualifiers: Nicotine product type: cigarettes Substance use status: in withdrawal Qualified Code(s): F17.213 - Nicotine dependence, cigarettes, with withdrawal (4) Asthma Current Visit: No Status: Chronic Qualifiers: Asthma severity: mild Asthma persistence: unspecified Asthma complication type: uncomplicated Qualified Code(s): J45.909 - Unspecified asthma, uncomplicated (5) Chronic knee pain Current Visit: No Status: Chronic Qualifiers: Laterality: bilateral Qualified Code(s): M25.561 - Pain in right knee; M25.562 - Pain in left knee; G89.29 - Other chronic pain (6) Depression Current Visit: No Status: Chronic (7) GERD (gastroesophageal reflux disease) Current Visit: No Status: Chronic Qualifiers: Esophagitis presence: without esophagitis Qualified Code(s): K21.9 - Gastro -esophageal reflux disease without esophagitis (8) Hypercholesteremia Current Visit: No Status: Chronic (9) Hypertension Current Visit: No Status: Chronic Qualifiers: Hypertension type: essential hypertension Qualified Code(s): I10 - Essential (primary) hypertension (10) MDD (major depressive disorder) Current Visit: No Status: Chronic Qualifiers: Major depression recurrence: recurrent (11) History of syphilis Current Visit: Yes Status: Acute Cleared for Admission S - Detox or Rehab [facility] Level of Care: Medically Managed (for ativan regimen) Breathalyzer - Breathalyzer Breathalyzer: 0 Urine Drug Screen - Test Device Lot number: [id number] Expiration date: 12/09/20 - Control Is test valid?: Yes - Results Drug screen NEGATIVE: No Urine drug screen results: SARAY-Cocaine Inpatient Rehab Admission - Rehab Decision to Admit Inpatient rehab admission?: No
[2019-04-30] MEDS ORDERED: LORazepam 1 MG TABLET PO PRN (12:01)
[2019-04-30] MEDS ORDERED: METHOCARBAMOL 500 MG TABLET PO PRN (12:01)
[2019-04-30] MEDS ORDERED: MAGNESIUM HYDROX 2400MG/30ML ORAL SUSPENSION 30 ML CUP PO PRN (12:01)
[2019-04-30] MEDS ORDERED: IBUPROFEN 400 MG TABLET (FP) PO PRN (12:01)
[2019-04-30] MEDS ORDERED: hydrOXYzine PAMOATE 25 MG CAPSULE (FP) PO PRN (12:01)
[2019-04-30] MEDS ORDERED: MENTHOL/PHENOL 1 EACH UD MM PRN (12:01)
[2019-04-30] MEDS ORDERED: BISMUTH SUBSALICYLATE 262 MG/15 ML BTL PO PRN (12:01)
[2019-04-30] MEDS ORDERED: ACETAMINOPHEN 325 MG TABLET (FP) PO PRN ×2 (12:01)
[2019-04-30] MEDS ORDERED: MAG HYDROX/AL HYDROX/SIMETH 30 ML UNIT-DOSE CUP PO PRN (12:01)
[2019-04-30] MEDS ORDERED: MELATONIN 5 MG TABLETS PO PRN (12:01)
[2019-04-30] MEDS ORDERED: MAGNESIUM CITRATE 300 ML BOTTLE PO PRN (12:01)
[2019-04-30] MEDS ORDERED: ALBUTEROL SO4 8 GM HFA INHALER IH PRN (12:05)
[2019-04-30] MEDS: GABAPENTIN 100 MG CAPSULE (FP) PO SCH ×2 (13:01→22:25)
[2019-04-30] MEDS ORDERED: cloNIDine HCL 0.1 MG TABLET PO ONE (14:00)
[2019-04-30 15:40] LABS: HEMATOCRIT 44.9 % (32.4-45.2); HEMOGLOBIN 14.8 GM/dL (10.7-15.3); MCH 29.4 pg (25.7-33.7); MCHC 32.9 g/dl (32.0-36.0); MEAN CELL VOLUME 89.4 fl (80-96); MEAN PLT VOLUME 8.1 fl (7.5-11.1); PLATELET COUNT 358 K/MM3 (134-434); RBC 5.02 M/mm3 (3.60-5.2); RDW 13.6 % (11.6-15.6); WHITE BLOOD COUNT 4.8 K/mm3 (4.0-10.0)
[2019-04-30] MEDS: LORazepam 2 MG TABLET PO SCH ×2 (16:00→22:25)
[2019-04-30 16:29] LABS: ALBUMIN 3.9 g/dl (3.4-5.0); BILIRUBIN,TOTAL 0.2 mg/dL (0.2-1); BLOOD UREA NITROGEN 11.1 mg/dL (7-18); CALCIUM 9.9 mg/dL (8.5-10.1); CREATININE 0.7 mg/dL (0.55-1.3); POTASSIUM 4.2 mmol/L (3.5-5.1); TOT PROT 8.3 g/dl (6.4-8.2)
[2019-04-30] MEDS: BUDESONIDE/FORMETEROL FUMARATE 160/4.5 mcg INHALER IH SCH (22:24)
[2019-04-30] MEDS: ATORVASTATIN CA 10 MG TABLET (FP) PO SCH (22:25)
[2019-04-30] MEDS: MONTELUKAST NA 10 MG TABLET PO SCH (22:25)
[2019-04-30] MEDS: THIAMINE HCL 100 MG TABLET (FP) PO SCH (22:25)
[2019-05-01] MEDS: GABAPENTIN 100 MG CAPSULE (FP) PO SCH ×3 (05:45→22:32)
[2019-05-01] MEDS: LORazepam 2 MG TABLET PO SCH ×4 (05:45→22:32)
[2019-05-01] MEDS: metFORMIN HCL 500 MG TABLET (FP) PO SCH (07:22)
[2019-05-01] MEDS: PRENATAL VITAMINS W/ FOLIC ACID TABLET (FP) PO SCH (10:06)
[2019-05-01] MEDS: BUDESONIDE/FORMETEROL FUMARATE 160/4.5 mcg INHALER IH SCH ×2 (10:06→22:42)
[2019-05-01] MEDS: ASPIRIN 81 MG CHEWABLE TABLETS PO SCH (10:07)
[2019-05-01] MEDS: LOSARTAN POTASSIUM 25 MG TABLET PO SCH (12:01)
--- NOTE | 2019-05-01 12:31 | PN ---
S CIWA - CIWA Score Nausea/Vomitin-No Nausea/No Vomiting Muscle Tremors: 2 Anxiety: 3 Agitation: 0-Normal Activity Paroxysmal Sweats: 3 Orientation: 0-Oriented Tacttile Disturbances: 0-None Auditory Disturbances: 0-None Visual Disturbances: 0-None Headache: 2-Mild CIWA-Ar Total Score: 10 S Progress Note (SOAP) Subjective: c/o headache, sweats, and anxiety. Objective: 05/01/19 12:31 Vital Signs 05/01/19 05/01/19 06:44 09:28 Temperature 96.7 F L 97.0 F L Pulse Rate 65 758 H Respiratory 18 18 Rate Blood Pressure 138/91 138/91 Laboratory Last Values WBC 4.8 K/mm3 (4.0-10.0) 04/30/19 12:25 RBC 5.02 M/mm3 (3.60-5.2) 04/30/19 12:25 Hgb 14.8 GM/dL (10.7-15.3) 04/30/19 12:25 Hct 44.9 % (32.4-45.2) 04/30/19 12:25 MCV 89.4 fl (80-96) 04/30/19 12:25 MCH 29.4 pg (25.7-33.7) 04/30/19 12:25 MCHC 32.9 g/dl (32.0-36.0) 04/30/19 12:25 RDW 13.6 % (11.6-15.6) 04/30/19 12:25 Plt Count 358 K/MM3 (134-434) D 04/30/19 12:25 MPV 8.1 fl (7.5-11.1) 04/30/19 12:25 Sodium 140 mmol/L (136-145) 04/30/19 12:25 Potassium 4.2 mmol/L (3.5-5.1) 04/30/19 12:25 Chloride 105 mmol/L (98-107) 04/30/19 12:25 Carbon Dioxide 28 mmol/L (21-32) 04/30/19 12:25 Anion Gap 7 MMOL/L (8-16) L 04/30/19 12:25 BUN 11.1 mg/dL (7-18) 04/30/19 12:25 Creatinine 0.7 mg/dL (0.55-1.3) 04/30/19 12:25 Est GFR (CKD-EPI)AfAm 113.84 04/30/19 12:25 Est GFR (CKD-EPI)NonAf 98.23 04/30/19 12:25 POC Glucometer 106 UNITS (80-120) 05/01/19 05:43 Random Glucose 63 mg/dL (74-106) L 04/30/19 12:25 Calcium 9.9 mg/dL (8.5-10.1) 04/30/19 12:25 Total Bilirubin 0.2 mg/dL (0.2-1) 04/30/19 12:25 AST 18 U/L (15-37) 04/30/19 12:25 ALT 31 U/L (13-61) 04/30/19 12:25 Alkaline Phosphatase 106 U/L (45-117) 04/30/19 12:25 Total Protein 8.3 g/dl (6.4-8.2) H 04/30/19 12:25 Albumin 3.9 g/dl (3.4-5.0) 04/30/19 12:25 Labs noted. Assessment: 05/01/19 12:31 AOX3, in no respiratory distress. Full ROM, ambulating in the unit. Withdrawal symptoms. Plan: continue detox.
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
--- NOTE | 2019-05-01 15:22 | PN ---
[facility] Progress Note Note: Pt has a preliminary positive HIV 1&2 antibody screen. Awaiting for confirmatory test. Pt was informed about the preliminary testing and also awaiting for the confirmatory test for the diagnosis of HIV+. Pt is informed to remind the provider oncall upon her discharge for confirmatory results and and possible referrals depending on the confirmatory results and also to follow-up with her PMD. Pt verbalized understanding of the information given.
[2019-05-01 21:45] LABS: PH,URINE 5.5 (5.0-8.0); URINE APPEARANCE CLEAR; URINE BILIRUBIN NEGATIVE (NEGATIVE); URINE COLOR YELLOW; URINE GLUCOSE (UA) NEGATIVE (NEGATIVE); URINE KETONE NEGATIVE (NEGATIVE); URINE LEUK ESTERASE NEGATIVE (NEGATIVE); URINE NITRITE NEGATIVE (NEGATIVE); URINE PROTEIN NEGATIVE (NEGATIVE); URINE UROBILINOGEN 0.2 mg/dL (0.2-1.0)
[2019-05-01] MEDS: traZODone HCL 50 MG TABLET (FP) PO SCH (22:31)
[2019-05-01] MEDS: MONTELUKAST NA 10 MG TABLET PO SCH (22:32)
[2019-05-01] MEDS: THIAMINE HCL 100 MG TABLET (FP) PO SCH (22:32)
[2019-05-01] MEDS: ATORVASTATIN CA 10 MG TABLET (FP) PO SCH (22:32)
[2019-05-02] MEDS: LORazepam 1 MG TABLET PO SCH ×4 (06:25→22:37)
[2019-05-02] MEDS: GABAPENTIN 100 MG CAPSULE (FP) PO SCH ×3 (06:25→22:38)
[2019-05-02] MEDS: metFORMIN HCL 500 MG TABLET (FP) PO SCH (06:25)
[2019-05-02] MEDS ORDERED: CITALOPRAM HYDROBROMIDE 20 MG TABLET (FP) PO SCH (10:00)
[2019-05-02] MEDS: PRENATAL VITAMINS W/ FOLIC ACID TABLET (FP) PO SCH (10:43)
[2019-05-02] MEDS: ASPIRIN 81 MG CHEWABLE TABLETS PO SCH (10:43)
[2019-05-02] MEDS: LOSARTAN POTASSIUM 25 MG TABLET PO SCH (10:44)
[2019-05-02] MEDS: BUDESONIDE/FORMETEROL FUMARATE 160/4.5 mcg INHALER IH SCH ×2 (10:45→22:37)
--- NOTE | 2019-05-02 12:36 | PN ---
[facility] CIWA - CIWA Score Nausea/Vomitin-No Nausea/No Vomiting Muscle Tremors: 2 Anxiety: 2 Agitation: 0-Normal Activity Paroxysmal Sweats: 1-Minimal Palms Moist Orientation: 0-Oriented Tacttile Disturbances: 0-None Auditory Disturbances: 0-None Visual Disturbances: 0-None Headache: 0-None Present CIWA-Ar Total Score: 5 S Progress Note (SOAP) Subjective: 53 years old female admitted on 04/30/19 for alcohol withdrawal sx management treating with ativan detox regimen less tremor mild anxiety prefers to leave the detox tomorrow one day early than estimated discharge date on 05/04/19 Objective: 05/02/19 12:34 Vital Signs Temperature 97.4 F L 05/02/19 09:14 Pulse Rate 82 05/02/19 09:14 Respiratory Rate 18 05/02/19 09:14 Blood Pressure 129/84 05/02/19 09:14 O2 Sat by Pulse Oximetry (%) Laboratory Last Values WBC 4.8 K/mm3 (4.0-10.0) 04/30/19 12:25 RBC 5.02 M/mm3 (3.60-5.2) 04/30/19 12:25 Hgb 14.8 GM/dL (10.7-15.3) 04/30/19 12:25 Hct 44.9 % (32.4-45.2) 04/30/19 12:25 MCV 89.4 fl (80-96) 04/30/19 12:25 MCH 29.4 pg (25.7-33.7) 04/30/19 12:25 MCHC 32.9 g/dl (32.0-36.0) 04/30/19 12:25 RDW 13.6 % (11.6-15.6) 04/30/19 12:25 Plt Count 358 K/MM3 (134-434) D 04/30/19 12:25 MPV 8.1 fl (7.5-11.1) 04/30/19 12:25 Sodium 140 mmol/L (136-145) 04/30/19 12:25 Potassium 4.2 mmol/L (3.5-5.1) 04/30/19 12:25 Chloride 105 mmol/L (98-107) 04/30/19 12:25 Carbon Dioxide 28 mmol/L (21-32) 04/30/19 12:25 Anion Gap 7 MMOL/L (8-16) L 04/30/19 12:25 BUN 11.1 mg/dL (7-18) 04/30/19 12:25 Creatinine 0.7 mg/dL (0.55-1.3) 04/30/19 12:25 Est GFR (CKD-EPI)AfAm 113.84 04/30/19 12:25 Est GFR (CKD-EPI)NonAf 98.23 04/30/19 12:25 POC Glucometer 98 UNITS (80-120) 05/02/19 06:24 Random Glucose 63 mg/dL (74-106) L 04/30/19 12:25 Calcium 9.9 mg/dL (8.5-10.1) 04/30/19 12:25 Total Bilirubin 0.2 mg/dL (0.2-1) 04/30/19 12:25 AST 18 U/L (15-37) 04/30/19 12:25 ALT 31 U/L (13-61) 04/30/19 12:25 Alkaline Phosphatase 106 U/L (45-117) 04/30/19 12:25 Total Protein 8.3 g/dl (6.4-8.2) H 04/30/19 12:25 Albumin 3.9 g/dl (3.4-5.0) 04/30/19 12:25 Urine Color Yellow 05/01/19 19:38 Urine Appearance Clear 05/01/19 19:38 Urine pH 5.5 (5.0-8.0) 05/01/19 19:38 Ur Specific [place] 1.014 (1.010-1.035) 05/01/19 19:38 Urine Protein Negative (NEGATIVE) 05/01/19 19:38 Urine Glucose (UA) Negative (NEGATIVE) 05/01/19 19:38 Urine Ketones Negative (NEGATIVE) 05/01/19 19:38 Urine Blood Negative (NEGATIVE) 05/01/19 19:38 Urine Nitrite Negative (NEGATIVE) 05/01/19 19:38 Urine Bilirubin Negative (NEGATIVE) 05/01/19 19:38 Urine Urobilinogen 0.2 mg/dL (0.2-1.0) 05/01/19 19:38 Ur Leukocyte Esterase Negative (NEGATIVE) 05/01/19 19:38 RPR Titer Nonreactive (NONREACTIVE) 04/30/19 12:25 HIV 1&2 Antibody Screen Preliminary positive A 04/30/19 12:25 HIV P24 Antigen Negative 04/30/19 12:25 lab noted positive preliminary hiv negative p24 hiv antibody antigent pending patient may wait for pending result patient agrees to follow up with her primary care provider and follow up with the antibody antigent result 05/02/19 12:35 Assessment: 05/02/19 12:36 alcohol withdrawal Plan: ativan regimen
[2019-05-02] MEDS: MONTELUKAST NA 10 MG TABLET PO SCH (22:37)
[2019-05-02] MEDS: ATORVASTATIN CA 10 MG TABLET (FP) PO SCH (22:38)
[2019-05-02] MEDS: THIAMINE HCL 100 MG TABLET (FP) PO SCH (22:38)
[2019-05-02] MEDS: traZODone HCL 50 MG TABLET (FP) PO SCH (22:41)
[2019-05-03] MEDS ORDERED: LORazepam 0.5 MG TABLET PO PRN
[2019-05-03] MEDS ORDERED: LORazepam 0.5 MG TABLET PO SCH (05:00)
[2019-05-03] MEDS: GABAPENTIN 100 MG CAPSULE (FP) PO SCH (05:53)
[2019-05-03] MEDS: metFORMIN HCL 500 MG TABLET (FP) PO SCH (06:12)
[2019-05-03 06:59] VITALS: BP 113/69; PULSE 67; TEMP 97.9
--- NOTE | 2019-05-03 14:59 | DS ---
[facility] Detox Discharge Summary Admission Date: 04/30/19 Discharge Date: 05/03/19 - History Present History: Alcohol Dependence Additional Comments: 53 years old female admitted on 04/30/19 for alcohol withdrawal sx management treated with ativan detox regimen patient tolerated well alert oriented x 3 respiratory clear lung bilaterally on auscultation extremities full range of motion skin warm and dry Pertinent Past History: patient requests to be discharged one day early as per estimated discharge day of 05/04/19 patient prefers to return home with family during the holiday case discussed with the nurse routine discharge is appropriated - Physical Exam Results Vital Signs: Vital Signs Temperature 97.9 F 05/03/19 06:59 Pulse Rate 67 05/03/19 06:59 Respiratory Rate 18 05/03/19 06:59 Blood Pressure 113/69 05/03/19 06:59 O2 Sat by Pulse Oximetry (%) Pertinent Admission Physical Exam Findings: alcohol withdrawal Laboratory Last Values WBC 4.8 K/mm3 (4.0-10.0) 04/30/19 12:25 RBC 5.02 M/mm3 (3.60-5.2) 04/30/19 12:25 Hgb 14.8 GM/dL (10.7-15.3) 04/30/19 12:25 Hct 44.9 % (32.4-45.2) 04/30/19 12:25 MCV 89.4 fl (80-96) 04/30/19 12:25 MCH 29.4 pg (25.7-33.7) 04/30/19 12:25 MCHC 32.9 g/dl (32.0-36.0) 04/30/19 12:25 RDW 13.6 % (11.6-15.6) 04/30/19 12:25 Plt Count 358 K/MM3 (134-434) D 04/30/19 12:25 MPV 8.1 fl (7.5-11.1) 04/30/19 12:25 Sodium 140 mmol/L (136-145) 04/30/19 12:25 Potassium 4.2 mmol/L (3.5-5.1) 04/30/19 12:25 Chloride 105 mmol/L (98-107) 04/30/19 12:25 Carbon Dioxide 28 mmol/L (21-32) 04/30/19 12:25 Anion Gap 7 MMOL/L (8-16) L 04/30/19 12:25 BUN 11.1 mg/dL (7-18) 04/30/19 12:25 Creatinine 0.7 mg/dL (0.55-1.3) 04/30/19 12:25 Est GFR (CKD-EPI)AfAm 113.84 04/30/19 12:25 Est GFR (CKD-EPI)NonAf 98.23 04/30/19 12:25 POC Glucometer 123 UNITS (80-120) 05/03/19 05:54 Random Glucose 63 mg/dL (74-106) L 04/30/19 12:25 Calcium 9.9 mg/dL (8.5-10.1) 04/30/19 12:25 Total Bilirubin 0.2 mg/dL (0.2-1) 04/30/19 12:25 AST 18 U/L (15-37) 04/30/19 12:25 ALT 31 U/L (13-61) 04/30/19 12:25 Alkaline Phosphatase 106 U/L (45-117) 04/30/19 12:25 Total Protein 8.3 g/dl (6.4-8.2) H 04/30/19 12:25 Albumin 3.9 g/dl (3.4-5.0) 04/30/19 12:25 Urine Color Yellow 05/01/19 19:38 Urine Appearance Clear 05/01/19 19:38 Urine pH 5.5 (5.0-8.0) 05/01/19 19:38 Ur Specific Mobile 1.014 (1.010-1.035) 05/01/19 19:38 Urine Protein Negative (NEGATIVE) 05/01/19 19:38 Urine Glucose (UA) Negative (NEGATIVE) 05/01/19 19:38 Urine Ketones Negative (NEGATIVE) 05/01/19 19:38 Urine Blood Negative (NEGATIVE) 05/01/19 19:38 Urine Nitrite Negative (NEGATIVE) 05/01/19 19:38 Urine Bilirubin Negative (NEGATIVE) 05/01/19 19:38 Urine Urobilinogen 0.2 mg/dL (0.2-1.0) 05/01/19 19:38 Ur Leukocyte Esterase Negative (NEGATIVE) 05/01/19 19:38 RPR Titer Nonreactive (NONREACTIVE) 04/30/19 12:25 HIV 1&2 Antibody Screen Preliminary positive A 04/30/19 12:25 HIV P24 Antigen Negative 04/30/19 12:25 lab noted patient informed that preliminary hiv 1&2 antibody screening positive A and 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 not available at this time patient reports that she will contact [facility] medical record for hiv confirmation result patient states that she will contact her primary care provider at the [facility] for follow up - Treatment Hospital Course: Detox Protocol Followed, Detoxed Safely, Responded well, Discharged Condition Good, Rehab Referral Accepted Patient has Accepted a Rehab Referral to: [facility] / [facility] - Medication Discharge Medications: Ambulatory Orders Budesonide/Formeterol Fumarate [SYMBICORT 160/4.5mcg -] 2 inh PO BID 06/04/17 Gabapentin [Neurontin -] 100 mg PO TID 06/04/17 Ketoconazole 2% Shampoo [Nizoral 2% Shampoo -] 1 applic TP DAILY 06/04/17 metFORMIN HCL [Metformin HCl] 500 mg PO DAILY 06/04/17 Buspirone HCl [Buspar -] 15 mg PO BID #60 tablet 06/05/17 Citalopram Hydrobromide [Celexa -] 40 mg PO DAILY #30 tablet 06/05/17 traZODone HCL [Desyrel -] 150 mg PO HS #30 tablet 06/05/17 Albuterol Sulfate Inhaler - [Ventolin HFA Inhaler -] 2 inh PO Q4H PRN #1 inh Aspirin [ASA -] 81 mg PO DAILY #30 tab.chew 06/08/17 Losartan Potassium [Cozaar -] 25 mg PO DAILY #30 tablet 06/08/17 Montelukast Na [Singulair -] 10 mg PO HS #30 tablet 06/08/17 Pravastatin Sodium [Pravachol -] 20 mg PO HS #30 tablet 06/08/17 - Diagnosis (1) Alcohol dependence with uncomplicated withdrawal Status: Acute (2) Asthma Status: Chronic Qualifiers: Asthma severity: mild Asthma persistence: unspecified Asthma complication type: uncomplicated Qualified Code(s): J45.909 - Unspecified asthma, uncomplicated (3) GERD (gastroesophageal reflux disease) Status: Chronic Qualifiers: Esophagitis presence: without esophagitis Qualified Code(s): K21.9 - Gastro -esophageal reflux disease without esophagitis (4) Hypertension Status: Chronic Qualifiers: Hypertension type: essential hypertension Qualified Code(s): I10 - Essential (primary) hypertension (5) Nicotine dependence Status: Acute Qualifiers: Nicotine product type: cigarettes Substance use status: in withdrawal Qualified Code(s): F17.213 - Nicotine dependence, cigarettes, with withdrawal (6) Non-insulin dependent type 2 diabetes mellitus Status: Chronic (7) Substance induced mood disorder Status: Suspected - AMA Did Patient Leave Against Medical Advice: No CIWA Score - CIWA Score Nausea/Vomitin-No Nausea/No Vomiting Muscle Tremors: 1-None Visible, but [place] Anxiety: 1-Mildly Anxious Agitation: 0-Normal Activity Paroxysmal Sweats: No Perspiration Orientation: 0-Oriented Tacttile Disturbances: 0-None Auditory Disturbances: 0-None Visual Disturbances: 0-None Headache: 0-None Present CIWA-Ar Total Score: 2
[2019-05-04] MEDS ORDERED: LORazepam 0.5 MG TABLET PO ONE (05:00)
== END 2019-05-03 08:53 | disposition home or self-care (01) | DRG 774 ==
LOC: YASAS 09:31 → Y3N 12:11
PROVIDERS: ADMIT Allergy & Immunology; ATTEND Allergy & Immunology
PROC: HZ2ZZZZ Detoxification Services for Substance Abuse Treatment (ICD-10-PCS; principal; 2019-04-30)
DX: F10.230 Alcohol dependence with withdrawal, uncomplicated (principal); F14.20 Cocaine dependence, uncomplicated; F17.213 Nicotine dependence, cigarettes, with withdrawal; F19.24 Other psychoactive substance dependence with psychoactive substance-induced mood disorder; F33.9 Major depressive disorder, recurrent, unspecified; F43.10 Post-traumatic stress disorder, unspecified; I10 Essential (primary) hypertension; E11.9 Type 2 diabetes mellitus without complications; K21.9 Gastro-esophageal reflux disease without esophagitis; J45.909 Unspecified asthma, uncomplicated; G47.00 Insomnia, unspecified; G62.9 Polyneuropathy, unspecified; E78.5 Hyperlipidemia, unspecified; R01.1 Cardiac murmur, unspecified; M25.561 Pain in right knee; M25.562 Pain in left knee; G89.29 Other chronic pain; Z79.84 Long term (current) use of oral hypoglycemic drugs; Z87.42 Personal history of other diseases of the female genital tract; Z87.442 Personal history of urinary calculi; Z62.810 Personal history of physical and sexual abuse in childhood; Z91.410 Personal history of adult physical and sexual abuse
CPT/HCPCS: 36415; 80053; 81003; 81025; 82962; 85027; 86593; 87389; J0735